=== PATIENT | female | born 1955 | race Caucasian/White ===

== ENCOUNTER 2018-12-19 10:12 | Outpatient (CLI) | payer MEDICARE, BC ==
[2018-12-19 11:04] LABS: BASOPHILS # (AUTO) 0.05 x10^3/uL (0-0.1); BASOPHILS % (AUTO) 1 % (0-1); EOSINOPHILS # (AUTO) 0.05 x10^3/uL (0-0.4); EOSINOPHILS % (AUTO) 1 % (1-7); LYMPHOCYTES # (AUTO) 2.96 x10^3/uL (1-3.4); LYMPHOCYTES % (AUTO) 34 % (22-44); MD NO; MEAN CORPUSCULAR HGB CONC 33.3 g/dL (32.4-35.8); MEAN CORPUSCULAR VOLUME 95.9 fL (80-100); MEAN PLATELET VOLUME 7.5 fL (7.4-10.4); MONOCYTES % (AUTO) 5 % (2-9); NEUTROPHILS # (AUTO) 5.23 x10^3/uL (1.8-6.8); NEUTROPHILS % (AUTO) 60 % (42-75); PLATELET COUNT 292 x10^3/uL (130-400); RED BLOOD COUNT 4.79 x10^6/uL (3.82-5.3); RED CELL DISTRIBUTION WIDTH 11.9 % (9.6-15.2)
[2018-12-19 11:14] LABS: INTERNATIONAL NORMALIZED RATIO 1.01 (0.93-1.1); PROTHROMBIN TIME 10.6 Seconds (9.6-11.5)
[2018-12-19 11:15] LABS: ANION GAP 5 mmol/L (5-15); CALCIUM 9.5 mg/dL (8.5-10.1); CHLORIDE 105 mmol/L (98-107)
[2018-12-19 11:16] LABS: CREATININE 0.76 mg/dL (0.55-1.02)
[2018-12-19 11:23] LABS: MICROSCOPIC NOT IND
[2018-12-19 11:25] LABS: CULTURE INDICATED? NO
[2018-12-21] MEDS ORDERED: OXYC-302 PO (13:44)
[2018-12-28] MEDS ORDERED: DIPH50VI10 IVPush (09:37)
[2018-12-28] MEDS ORDERED: CLON0.1T22 PO (09:37)
[2018-12-28] MEDS ORDERED: METH750T2 PO ×3 (09:37→15:12)
[2018-12-28] MEDS ORDERED: MAGN400O7 PO (09:37)
[2018-12-28] MEDS ORDERED: GABA-827 PO (09:37)
[2018-12-28] MEDS ORDERED: BISA10SU4 PR ×2 (09:37)
[2018-12-28] MEDS ORDERED: POLY17PO5 PO (09:37)
[2018-12-28] MEDS ORDERED: SENN-193 PO (09:37)
[2018-12-28] MEDS ORDERED: ACET325T26 PO (09:37)
[2018-12-28] MEDS ORDERED: KETO30VI27 IV (09:37)
[2018-12-28] MEDS ORDERED: AMIT25TA PO (09:37)
[2018-12-28] MEDS ORDERED: METH4TAB6 PO (15:09)
[2018-12-28] MEDS ORDERED: FAMO-79 PO (15:10)
== END 2018-12-19 23:59 | disposition home or self-care (01) ==
LOC: STAR 10:12 → RAD 23:59
PROVIDERS: ATTEND Neurological Surgery
DX: M54.16 Radiculopathy, lumbar region (principal); Z79.899 Other long term (current) drug therapy
CPT/HCPCS: 36415; 71046; 80048; 81003; 85025; 85610; 85730; 93005